=== PATIENT | female | born 1990 | race Caucasian/White ===

== ENCOUNTER → 2017-07-31 14:50 | Observation (INO) ==
--- OUTSIDE RECORDS SUMMARY | 2017-07-30 11:55 | External Medical Summary | Continuity of Care Document ---
:1990 Author Organization [facility] Allergies Active Description Code Type Severity Reaction Onset Reported/ Identified Relationship Clinical to Patient Status Yes CEFTRIAXONE 2734 1 N/A Hives SODIUM Medications Medication Packaging Start Date Stop Date Route Dosage Sig Box 07/12/2017 use ULTRA THIN by Intradermal LANCETS route 4 times every day Each 07/12/2017 test BLOOD GLUCOSE 7 4 times a day METER (fasting and 2 hours after each main meal) Box 07/12/2017 test BLOOD GLUCOSE 7 1 Drop by TEST STRIP Intradermal route 4 times every day fasting and postprandial Package 07/20/2017 take SELECT-OB + DHA daily as directed Box 07/22/2017 test BLOOD GLUCOSE 4 times a day METER (fasting and 2 hours after each main meal) Problems Date Dx Coded Attending Type Code Diagnosis Diagnosed By 06/21/2017 Aniket Meyers O09.893 Supervision of L other high risk pregnancies, third trimester 06/21/2017 Aniket Meyers O34.211 Previous Low L Transverse 06/21/2017 Aniket Meyers O36.8130 Decreased L movements, third trimester, unsp 06/21/2017 Aniket Meyers Z3A.28 28 weeks gestation L of 07/09/2017 Aniket Meyers O09.893 Supervision of L other high risk pregnancies, third trimester 07/09/2017 Aniket Meyers O34.211 Previous Low L Transverse 07/09/2017 Aniket Meyers O36.8130 Decreased L movements, third trimester, unsp 07/09/2017 Aniket Meyers Z3A.28 28 weeks gestation L of 07/22/2017 Aniket Meyers O24.410 Gestational L diabetes mellitus in , diet controlled 07/22/2017 Aniket Meyers O34.211 Previous Low L Transverse 07/22/2017 Aniket Meyers Z3A.32 32 weeks gestation L of Procedures Code Description [place] [address] Venpnctr 06/21/2017 fngr/heel/ear stick routne 09555 06/21/2017 non-stress test 28144 OB Visit No 06/21/2017 Charge 37343 Glucose test 06/21/2017 25881 Immuniz 06/21/2017 admnin, 1 vac, sngl/combo 30155 TDAP VACCINE 06/21/2017 >7 IM 35342 Ultrasnd 07/22/2017 preg uterus, flwup/repeat Results There is no data. Encounters ACCT No. Visit Discharge Status Pt. Type Provider Facility Loc./Unit Complaint Date/Time [id number] 07/22/2017 07/22/2017 [facility], 13:40:00 23:59:59 Aniket Graf [id number] 07/22/2017 07/22/2017 [facility], 13:15:00 23:59:59 Aniket Graf [id number] 07/20/2017 07/20/2017 [facility], 13:43:00 23:59:59 Aniket Graf [id number] 07/20/2017 07/20/2017 [facility], 11:35:00 23:59:59 Aniket L [id number] 07/16/2017 07/16/2017 [facility], 09:48:00 23:59:59 Aniket L [id number] 07/12/2017 07/12/2017 [facility], 11:03:00 23:59:59 Aniket L [id number] 07/10/2017 07/10/2017 [facility], 11:52:00 23:59:59 Aniket L [id number] 07/09/2017 07/09/2017 [facility], 09:45:00 23:59:59 Aniket L [id number] 06/28/2017 06/28/2017 [facility], 08:26:00 23:59:59 Aniket L [id number] 06/21/2017 06/21/2017 [facility], 10:15:00 23:59:59 Aniket L [id number] 06/14/2017 06/14/2017 [facility], 16:51:00 23:59:59 Aniket Graf [id number] 07/29/2017 Document 11:10:00 Registration
--- OUTSIDE RECORDS SUMMARY | 2017-07-30 11:55 | External Medical Summary | Continuity of Care Document ---
:1990 Author Organization [facility] Address [address] [place], [place] [id number] Phone Allergies, Adverse Reactions, Alerts Substance Reaction Severity Status CEFTRIAXONE SODIUM Hives Unknown Active Medications Medication Instructions Dosage Effective Dates Status Comments (start - stop) blood-glucose test 4 times a day - Active goes with One meter (fasting and 2 Touch Ultra hours after each Mini main meal) Select-OB + DHA take daily as - Active Select OB + 29 mg iron-1 directed DHA mg-250 mg oral pack Lancets,Ultra use by Intradermal Not Available - Active goes with One Thin route 4 times Touch Ultra every day Mini iron ER 325 mg take 1 tablet by Not Available - Active (65 mg iron) oral route 2 times capsule,extended every day release Problems Condition Effective Dates (start - stop) Clinical Status Supervision of other high risk - pregnancies, second trimester Supervision of other high risk - pregnancies, third trimester Previous Low Transverse - Abnormal glucose complicating - Supervision of other high risk - pregnancies, third trimester Previous Low Transverse - Decreased movements, third - trimester, unsp 28 weeks gestation of - Supervision of other high risk - pregnancies, second trimester Supervision of other high risk - pregnancies, third trimester Gestational diabetes mellitus in - , diet controlled Previous Low Transverse - Supervision of other high risk - pregnancies, third trimester Unspecified maternal hypertension, - third trimester Gestational diabetes mellitus in - , diet controlled Previous Low Transverse - Gestational diabetes mellitus in - , diet controlled Previous Low Transverse - 32 weeks gestation of - Chronic Anemia Active Depression Active Procedures Procedure Date OB Visit No Charge Results Test Name Date and Time Measure Units Reference Range Abnormal Flag Comments Unknown Advance Directives Directive Yes / No Effective Date File Name Unknown Encounters Encounter Practice Location Reason(s) Diagnoses Date Provider Care Team Description For Visit Members Mahad Rodriguez Supervision of Dec-2 [facility] other high risk - [place], pregnancies, 7 700 [address] third Medical [address], trimesterUnspecif [facility] [place], d maternal [place], [place], hypertension, [address] , third 120, [place] trimesterGestatio Michael, tel:[phone] [place] [address], , diet [place]. controlledPreviou tel:+131 s Low Transverse [id number] Mahad Rodriguez Supervision of Dec- [facility] other high risk - [place] [place], pregnancies, 7 700 [address] second Medical [address], trimesterSupervis [facility], ion of other high [place], [place], risk pregnancies, [id number], third 120, [place] trimesterGestlizet Rodriguez, tel:[phone] [place]al [place] [address], , diet [place]. controlledPreviou tel:[phone] s Low Transverse [id number] Mahad Rodriguez Gestational Dec-1 [facility] Ultrasound diabetes mellitus 4-201 [place], in , 7 700 [address] diet Medical 1522, controlledPreviou [facility] Low Transverse [place], [place], C-Ecdtnwe76 weeks [address] [id number], gestation of 120, [place] Michael, tel:[phone] [place], [address], [place]. tel:[phone] [facility] Dec-1 [facility] 2-201 [place] [place], 7 700 [address], [place], [place], [address] [id number], 120, [place] Michael, tel:[phone] [place], [address], [place]. tel:[phone] Mahad Rodriguez Dec-0 [facility] 4-201 [place] [place], 7 700 [address], [address] [place], [address], [place], [address] [id number], 120, [place] Rodriguez, tel: [place], [address], [place]. tel: [phone] Mahad Rodriguez Supervision of Dec-0 [facility] other high risk 1-201 [place] [place], pregnancies, 7 700 [address] second Medical [address], trimesterSupervis [facility] [place], ion of other high Drive, [place], risk pregnancies, [address] [id number], third 120, [place] trimesterPrevious Rodriguez, tel: Low Transverse [place], C-SectionAbnormal [address], glucose [place]. complicating tel: [phone] Mahad Rodriguez Supervision of Jun- [facility] Referring In Womens other high risk 3-201 [place]. Provider: [facility] [place], pregnancies, 7 700 Aniket PO Box third Medical [facility] L, 1522, trimesterPrevious Center [address] [place], [address], Medical [place], C-SectionDecrease Suite Center [id number], d 120, Drive [place] movements, third Rodriguez, [address], tel: trimester, unsp28 [place], [place], weeks gestation [address], [place], [address]. of [place]. tel: tel: [phone] Family History Family Member Diagnosis Age At Onset No family history of Venous Thrombosis No family history of Pulmonary Embolism Immunizations Vaccine Date Status Comments Tdap completed Source: New Immunization Record Influenza, seasonal, injectable, completed Source: Other Provider preservative free, 3 yrs or older Payers Payer name Insurance type Covered democrat ID Authorization(s) [facility] - [id number] Medicaid Social History Type Description Quantity Date Captured Alcohol Use Details No Caffeine Use Details Unknown Tobacco Use Status Unknown Smoking Status Never smoker Vital Signs Date / Height Weight BMI Pulse Blood Temperature Respiratory Body Head BMI Time: Rate Pressure Rate Surface Circumference percentile Area 137.30 26.8 128/ -2017 lbs 1 mm[Hg] 9:13 kg/m AM eter (2) Chief Complaint And Reason For Visit Unknown Chief Complaint And Reason For Visit Reason For Referral Reason For Referral Unknown Plan Of Care Date Type Action Status Appointment Leah Garcia BOOKED Appointment Leah Garcia [facility] R C/S BOOKED Future Order: Radiology Order Ultrasound OB Follow-up (71709) Ordered Date Type Problem Goal Intervention Status Start Date Unknown. History Of Present Illness Encounter Date Complaint History Of Present Illness This patient has no known history of present illness Functional Status Encounter Date Functional Assessment Cognitive Assessment Unknown Medications Administered Medication Instructions Dosage Effective Dates (start - stop) Status Comments Drug Treatment Unknown Instructions Date Instruction Additional Information Unknown
--- OUTSIDE RECORDS SUMMARY | 2017-07-30 11:55 | External Medical Summary | Continuity of Care Document ---
:1988 Author Organization [facility] Address [address] [place], [place] [phone] Phone Allergies, Adverse Reactions, Alerts Substance Reaction Severity Status CEFTRIAXONE SODIUM Hives Unknown Active Medications Medication Instructions Dosage Effective Dates Status Comments (start - stop) 28 mg take 1 tablet by Not Available - Active iron-800 mcg oral route every tablet day iron ER 325 mg (65 take 1 tablet by Not Available - Active mg iron) oral route 2 times capsule,extended [...] Low Transverse - Abnormal glucose complicating - Chronic Anemia Active Depression Active Procedures Procedure Date non-stress test Initial OB Visit 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, 1 vac, sngl/combo 19 Yrs + TDAP VACCINE >7 IM Glucose test Venpnctr fngr/heel/ear stick routne Results Test Name Date and Time Measure Units Reference Range Abnormal Flag Comments Panel Description: Glucose [Mass/volume] in Serum or Plasma --1 hour post 50 g glucose PO GLUCOSE, 166 mg/dL <140 H One hour value of > GESTATIONAL SCREEN 15:20:00 yn=495 mg/dL indicatesthe (50G)-140 CUTOFF need for a diagnostic 75 g dose 2-hour or100 g dose 3-hour oral glucose tolerance test;patient fasting is required.REPORT COMMENT:FASTING:NOTest performed at [employer] [id number] [place] [id number]: YOBANY SWIFT DO,MPH Advance Directives Directive Yes / No Effective Date File Name Unknown Encounters Encounter Practice Location Reason(s) Diagnoses Date Provider Care Team Description For Visit Members Mahad Rodriguez Supervision of Jul-0 [facility] other high risk 1-201 [place] [place], pregnancies, second 7 700 [address] trimesterSupervisio Medical 1522, n of other high [place], risk pregnancies, Drive, [place], third [address] [id number], trimesterPrevious 120, [place] Low Transverse Rodriguez, tel:[phone] [place]SectionAbnormal [place], glucose [address], complicating [place]. tel: [phone] Mahad Rodriguez Supervision of [facility] Referring In Womens other high risk 3-201 [place]. Provider: Health [place], pregnancies, third 7 700 Aniket PO Box trimesterPrevious Medical [facility] L, 1522, Low Transverse Center [address] [place], C-Section[address]creased [address], [facility], movements, Suite Center [id number], third trimester, 120, Drive [place] unsp28 weeks Rodriguez, [address], tel:+2 gestation of [place], [address], [place], [address]. [place]. tel: tel: [phone] Family History Family Member Diagnosis Age At Onset No family history of Venous Thrombosis No family history of Pulmonary Embolism Immunizations Vaccine Date Status Comments Tdap completed Source: New Immunization Record Influenza, seasonal, injectable, completed Source: Other Provider preservative free, 3 yrs or older Payers Payer name Insurance type Covered libertarian ID Authorization(s) [facility] - [id number] Medicaid Social History Type Description Quantity Date Captured Alcohol Use Details No Caffeine Use Details Unknown Tobacco Use Status Never smoked tobacco Smoking Status Never smoker Non-Smoking Tobacco Use : No Details Available : No Details Available Details Vital Signs Date / Height Weight BMI Pulse Blood Temperature Respiratory Body Head BMI Time: Rate Pressure Rate Surface Circumference percentile Area 133.10 25.9 126/2017 lbs 9 mm[Hg] 10:19 kg/m AM eter (2) Chief Complaint And Reason For Visit Unknown Chief Complaint And Reason For Visit Reason For Referral Reason For Referral Unknown Plan Of Care Date Type Action Status Appointment Leah Garcia BOOKED Appointment Leah Garcia BOOKED Appointment Leah Garcia BOOKED Appointment Leah Garcia [facility] R C/S BOOKED Date Type Problem Goal Intervention Status Start [...]
--- OUTSIDE RECORDS SUMMARY | 2017-07-30 11:55 | External Medical Summary | Continuity of Care Document ---
:1988 Author Organization [facility] Address [address] [place], [place] [id number] Phone Allergies, Adverse Reactions, Alerts Substance Reaction Severity Status CEFTRIAXONE SODIUM Hives Unknown Active Medications Medication Instructions Dosage Effective Dates Status Comments (start - stop) Lancets,Ultra use by Intradermal Not Available - Active goes with One Thin route 4 times Touch Ultra every day Mini blood-glucose test 4 times a day - Active Taye-Metric meter (fasting and 2 Meter and test hours after each strips also main meal) please 28 mg take 1 tablet by Not Available - Active iron-800 mcg oral route every tablet day iron ER 325 mg take 1 tablet [...] Anemia Active Depression Active Procedures Procedure Date Unknown Results Test Name Date and Time Measure Units Reference Range Abnormal Flag Comments Panel Description: GLUCOSE TOLERANCE TEST, GESTATIONAL,4SPEC(100G) GLUCOSE, FASTING 08:37:00 71 mg/dL 65-94 N GLUCOSE, 1 HOUR 08:37:00 185 mg/dL <180 H GLUCOSE, 2 HOUR 08:37:00 180 mg/dL <155 H GLUCOSE, 3 HOUR 08:37:00 140 mg/dL <140 H [id number] 08:37:00 See Below Leonardo/Coustan Criteria: Two or more values greater than the above reference intervals are suggestive of gestational diabetes. REPORT COMMENT:FASTING:YESTe st performed at [id number] [place] [address]Lhblrcpm: YOBANY SWIFT DO,MPH Advance Directives Directive Yes / No Effective Date File Name Unknown Encounters Encounter Practice Location Reason(s) Diagnoses Date Provider Care Team Description For Visit Members Mahad Rodriguez Dec-0 [facility] 4-201 [place], 7 700 [address] Medical [address], [place], [place], [address] [id number], 120, [place], tel:+ [place], [address], [place]. tel: [phone] Mahad Rodriguez Supervision of Dec-0 [facility]ens other high risk 1-201 [place] [place], pregnancies, second 7 700 [address] Box trimesterSupervisio Medical 1522, n of other high [place], risk pregnancies, [place], [place], third [address] [id number], trimesterPrevious 120, [place] Low Transverse Michael, tel: C-SectionAbnormal [place], glucose [address], complicating [place]. tel: [phone] Mahad Rodriguez Nov-2 [facility] 0-201 [place] [place], 7 700 [address] Medical [address], Center [place], [place], [address] [id number], 120, [place], [place]: [place], [address], [place]. tel: [phone] Mahad Rodriguez Supervision of Nov-1 [facility] Referring In Womens other high risk 3-201 [place]. Provider: Health [place], pregnancies, third 7 700 [place] PO Box trimesterPrevious Medical [facility] L, 1522, Low Transverse Center [address] [place] [address], C-SectionDecreased [facility], movements, Suite Center [id number], third trimester, 120, Drive [place] unsp28 weeks Rodriguez, [address], tel:+ gestation of [place], [address], [place], [address]. [place]. tel:+ tel: [phone] Family History Family Member Diagnosis Age At Onset No family history of Venous Thrombosis No family history of Pulmonary Embolism Immunizations Vaccine Date Status Comments Tdap completed Source: New Immunization Record Influenza, seasonal, injectable, completed Source: Other Provider preservative free, 3 yrs or older Payers Payer name Insurance type Covered green party ID Authorization(s) [facility] - [id number] Medicaid Social History Type Description Quantity Date Captured Unknown Vital Signs Date / Height Weight BMI Pulse Blood Temperature Respiratory Body Head BMI Time: Rate Pressure Rate Surface Circumference percentile Area Unknown Chief Complaint And Reason For Visit Unknown Chief Complaint And Reason For Visit Reason For Referral Reason For Referral Unknown Plan Of Care Date Type Action Status Appointment Leah Garcia BOOKED Appointment Leah Garcia BOOKED Appointment Leah Garcia BOOKED Appointment Leah Garcia [facility]OOKED Date Type Problem Goal [...]
--- OUTSIDE RECORDS SUMMARY | 2017-07-30 11:55 | External Medical Summary | Continuity of Care Document ---
:1988 Author Organization [facility] Address [address] [place], [place] [id number] Phone Allergies, Adverse Reactions, Alerts Substance Reaction [...] trimester, unsp 28 weeks gestation of - Chronic Anemia Active Depression Active Procedures Procedure Date Unknown Results Test Name Date and Time Measure Units Reference Range Abnormal Flag Comments Unknown Advance Directives Directive Yes / No Effective Date File Name Unknown Encounters Encounter Practice Location Reason(s) Diagnoses Date Provider Care Team Description For Visit Members Mahad Rodriguez Supervision of [facility] Referring In Womens other high risk 3- [place]. Provider: Health [place], pregnancies, third 7 700 Aniket PO Box trimesterPrevious Medical [facility] L, 1522, Low Transverse Center 700 [place], C-SectionDecreased [facility], movements, Suite Center [id number], third trimester, 120, Drive [place] unsp28 weeks Michael [address], tel:+0 gestation of Michael [place], [address], [place], [address]. [place]. tel: tel: [phone] Associates Michael Nov- [facility] Women 6-201 [place]. [facility] [place], 7 700 [address] Medical [address], Center [place], [facility], [place], [address] [id number], 120, [place] Rodriguez, tel:-[phone] [place], [address], [place]. tel: [phone] Family History Family Member Diagnosis Age At Onset No family history of Venous Thrombosis No family history of Pulmonary Embolism Immunizations Vaccine Date Status Comments Tdap completed Source: New Immunization Record Influenza, seasonal, injectable, completed Source: Other Provider preservative free, 3 yrs or older Payers Payer name Insurance type Covered libertarian ID Authorization(s) Unknown Social History Type Description Quantity Date Captured Unknown Vital Signs Date / Height Weight BMI Pulse Blood Temperature Respiratory Body Head BMI Time: Rate Pressure Rate Surface Circumference percentile Area Unknown Chief Complaint And Reason For Visit Unknown Chief Complaint And Reason For Visit Reason For Referral Reason For Referral Unknown Plan Of Care Date Type Action Status Appointment Leah Garcia BOOKED Date Type Problem Goal Intervention Status [...]
[2017-07-30 11:58] VITALS: BMI 25.2
--- NOTE | 2017-07-30 13:21 | OB/GYN History & Physical ---
- History of Present Illness Date of Admission: 07/30/17 11:44 Reason for Admission: other History of Present Illness: 27y/o presented to office today with elevated bp, LOYD, and vision changes. Ob history significant for PTD and Preeclmapsia. Complication with include GDM Diet controlled, Short interval , Previous C/S x 2. Last menstrual period: 12/05/16 Expected Date of Delivery: 08/06/17 : 6 Para: 5 - OB History #1 Delivery Type: vaginal delivery Complications: GDM. Preeclapsia #2 Delivery Type: vaginal delivery Complications: Preclampsia, PPH, PTD #3 Delivery Type: vaginal delivery Complications: Preeclampsia #4 Delivery Type: section (Nonreasuring FHT) #5 Delivery Type: section Complications: PTD, Preeclampsia Review of Systems - EENT Eyes: Present: change in vision Additional comments: Light spots - Cardiovascular Cardiovascular: Absent: chest pain, palpitations - Respiratory Respiratory: Absent: cough, dyspnea, wheezing - Gastrointestinal Gastrointestinal: Absent: change in bowel habits, constipation, diarrhea, nausea , vomiting - Genitourinary Genitourinary: Absent: dysuria, hematuria Menstruation: Present: amenorrhea, period normal - Musculoskeletal Musculoskeletal: Absent: arthralgias, back pain - Integumentary/Breasts Integumentary: Absent: pruritus, rash - Neurological Neurological: Present: headache(s). Absent: dizziness, numbness - Psychiatric Psychiatric: Absent: anxiety, depression PFSH Patient Stated Medical History Cerebrovascular Accident No Migraine No Seizures No Syncope No Hypertension Yes: preeclampsia with several pregnancies Asthma No Chronic Obstructive Pulmonary No Disease (COPD) Pneumonia No Sleep Apnea No Gastroesophageal Reflux No Disease Hepatitis No Hiatal Hernia No Hx Kidney Stones No Hx Urinary Tract Infection No Anemia Yes: 65 mg iron supp daily Cellulitis No Herpes No Human Immunodeficiency Virus ( No HIV) Human Papilloma Virus No MRSA No Sepsis No Anesthesia Reactions No Blood Transfusions Yes: one for anemia, second after one delivery Now Yes Medical History Updates: GDM diet controlled Surgical History: C/S x 2 - Social History Smoking status: Former smoker Substance use type: does not use Alcohol intake frequency: does not drink Household members: spouse, children Current occupational exposures/hazards: No Medications Allergies Allergy/AdvReac Type Severity Reaction Status Date / Time ceftriaxone [From Rocephin] Allergy Hives Verified 07/30/17 11:57 Exam - Constitutional Present: no acute distress - Neck Exam Present: supple, full ROM - Respiratory Exam Present: CTA bilaterally - Cardiovascular Exam Present: RRR - Abdominal Exam Present: soft Comments: Gravid - Extremities Exam Extremities: Present: no edema, non tender - Neurological Exam Present: alert, oriented X3 - Psychiatric Exam Present: normal affect, 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 CBC & Chem 7: 07/30/17 12:13 07/30/17 12:13 Labs: Laboratory Results - last 24 hr 07/30/17 07/30/17 07/30/17 12:13 12:13 12:16 WBC 10.1 RBC 4.56 Hgb 13.2 Hct 38.0 MCV 83.3 MCH 28.9 MCHC 34.7 RDW Std Deviation 39.0 Plt Count 198 MPV 12.4 Immature Gran % (Auto) 0.3 Neut % (Auto) 69.3 H Lymph % (Auto) 22.9 L Maries % (Auto) 5.8 Eos % (Auto) 1.4 Baso % (Auto) 0.3 Neut # (Auto) 7.0 Lymph # (Auto) 2.3 Maries # (Auto) 0.6 Eos # (Auto) 0.1 Baso # (Auto) 0.0 Abs Immat Gran (auto) 0.03 Turbidity < 20 Sodium 138 Potassium 3.9 Chloride 110 H Carbon Dioxide 19 L Anion Gap 9 BUN 13.0 Creatinine 0.6 L GFR Calculation 118 BUN/Creatinine Ratio 22 Glucose 71 Calculated Osmolality 264 Calcium 9.1 Total Bilirubin 0.40 Icterus Index < 2 AST 20 ALT 24 Alkaline Phosphatase 225 H Total Protein 7.4 Albumin 3.7 Globulin 3.7 H Albumin/Globulin Ratio 1.0 L Specimen Hemolysis < 15 Ur Random Creatinine 78.0 U Random Total Protein 10.0 Protein/Creatinin Ratio 0.13 Antepartum Assessment and Plan (1) with 33 completed weeks gestation Current visit: Yes Status: Acute (2) Elevated blood pressure affecting in third trimester, antepartum Problem details: PIH lab WNL, Complete 24 TUP. Start ANCS for at risk of PTD. Observation repeat lab in am, BPP in am, If severe preclampsia will dispo for for delivery. Current visit: Yes Status: Acute (3) Gestational diabetes mellitus (GDM) affecting , antepartum Problem details: DM diet low carb Acu checks. Current visit: Yes Status: Acute
[2017-07-30] MEDS: ACETAMINOPHEN 500 MG TABLET PO PRN ×2 (13:24→19:27)
[2017-07-31] MEDS: ACETAMINOPHEN 500 MG TABLET PO PRN ×2 (01:31→07:26)
[2017-07-31 01:41] VITALS: RESP 14
[2017-07-31 07:50] VITALS: TEMP 97.7; O2SAT 97
--- NOTE | 2017-07-31 08:32 | OB/GYN Progress Note ---
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 Mild LOYD that has improved resolved and returned. Vision changes floaters that happen occasionaly when she gets up - Objective Vital signs: Temperature 97.7 F 07/31/17 05:30 Pulse Rate 60 07/31/17 05:30 Respiratory Rate 14 07/31/17 05:30 Blood Pressure 130/85 07/31/17 05:30 Pulse Oximetry 97 07/31/17 05:30 Vital Signs - 24 hr 07/30/17 11:57 07/30/17 15:28 07/30/17 16:21 Temperature 98.0 F Pulse Rate 82 93 79 Respiratory Rate 16 18 Blood Pressure 140/97 H 134/88 125/83 Pulse Oximetry 07/30/17 17:34 07/30/17 18:26 07/30/17 18:27 Temperature Pulse Rate 73 86 72 Respiratory Rate Blood Pressure 128/87 143/94 H 140/92 H Pulse Oximetry 07/30/17 19:24 07/30/17 20:23 07/30/17 21:42 Temperature 97.7 F Pulse Rate 67 75 69 Respiratory Rate 16 Blood Pressure 138/91 H 127/81 125/80 Pulse Oximetry 07/30/17 22:27 07/31/17 01:29 07/31/17 05:30 Temperature 98.0 F 97.7 F Pulse Rate 67 69 60 Respiratory Rate 14 14 Blood Pressure 127/82 118/71 130/85 Pulse Oximetry 97 General: alert and oriented Cardiovascular: regular rate,rhythm Respiratory: non-labored Abdomen: non-tender, soft Laboratory Result: 07/30/17 12:13 07/30/17 12:13 - Assessment and Plan (1) with 33 completed weeks gestation Assessment and Plan: ANCS Previous C/S contractions mild, Cervix FT/TH/High will monitor (2) Elevated blood pressure affecting in third trimester, antepartum Comment: PIH lab WNL, Complete 24 TUP. Start ANCS for at risk of PTD. Observation repeat lab in am, BPP in am, If severe preclampsia will dispo for for delivery. Repeat PIH lab today, Await 24 TUP, BPP today (3) Gestational diabetes mellitus (GDM) affecting , antepartum Comment: DM diet low carb Acu checks.
[~2017-07-31 14:50] MED LIST: BETAMETHASONE 30 MG/5 ML INJECTION IM ONE; DiphenhydrAMINE 25 MG CAPSULE PO PRN
[2017-07-31 14:59] VITALS: BP 136/87; PULSE 81
--- NOTE | 2017-08-01 09:56 | Ultrasound Report ---
Indication: Gestational Hypertension PROCEDURE: US OB BPP wo non-stress: Encounter: Initial Age by provided LMP is 34 weeks and 0 days correlating to an SONY of September 11, 2017. Comparison: None PROCEDURE: US OB BPP wo non-stress: Technique: Grayscale and color Doppler transabdominal sonographic imaging was performed. Findings: There is a single living intrauterine gestation in cephalic lie. Placenta is anterior without previa. Quantity of amniotic fluid is severely decreased. Amniotic fluid index is severely decreased at 1.8 cm. Largest vertical pocket in the right upper quadrant is 1.8 cm. Umbilical artery Doppler tracing reveals a peak systolic velocity of 44.9 cm/sec, end diastolic velocity of 20 cm/sec, resistive index of 0.56, pulsatility index of 0.83, S/D ratio of 2.3, and TAPV of 30.6 cm/sec. heart beats regularly at 150 beats per minute. biometry: Biophysical profile score is 6 out of 8 with two points deducted for oligohydramnios. Impression: 1. Single living intrauterine gestation with age by provided LMP of 34 weeks and 0 days. This correlates to an SONY of September 11, 2017. 2. Biophysical profile score 6 out of 8. 3. Severe oligohydramnios. .
== END | disposition home or self-care (01) ==
LOC: MC
PROVIDERS: ADMIT Obstetrics & Gynecology; ATTEND Obstetrics & Gynecology